=== PATIENT | female | born 1965 | race Caucasian/White ===

== ENCOUNTER 2017-01-03 10:59 | Day surgery (SDC) | payer OTHER ==
[2017-01-03] MEDS ORDERED: LIDOCAINE 1% W/EPI 1:200,000 MPF 30ML SQ ONE (13:28)
[2017-01-03] MEDS ORDERED: BUPIVACAINE 0.5% W/EPI MPF 30 ML VIAL IVP ONE (13:28)
[2017-01-03] MEDS ORDERED: DEXAMETHASONE PRESERVATIVE FREE 10MG/ML VIAL IV ONE (13:28)
[2017-01-03] MEDS ORDERED: ONDANSETRON HCL IV 4 MG/2 ML VIAL IVP ONE (15:22)
[2017-01-03] MEDS ORDERED: FENTANYL PF 100MCG/2ML VIAL IV ONE (15:22)
[2017-01-03] MEDS ORDERED: LIDOCAINE 2% MDV (20MG/ML) 20ML VIAL IV ONE (15:22)
[2017-01-03] MEDS ORDERED: PROPOFOL 10 MG/ML VIAL IV ONE (15:22)
[2017-01-03] MEDS ORDERED: MIDAZOLAM HCL 2MG/2ML VIAL IV ONE (15:22)
--- NOTE | 2017-01-03 15:54 | Operative Note - [place] ---
DATE OF SURGERY: 01/03/17 PREOPERATIVE DIAGNOSIS: CERVICAL SPONDYLOSIS WITHOUT MYELOPATHY, ICD-10 CODE = M47.812. OPERATION: RADIOFREQUENCY RHIZOTOMY LEFT CERVICAL FACETS 3/4, 4/5, 5/6, AND 6/7. SURGEON: FLORI SHEARER D.O. ANESTHESIA: LOCAL SEDATION. ANESTHESIA PROVIDER: BRANDON MENDES CRNA. INDICATION: This patient presents with primary neck pain. Examination shows tenderness in the cervical spine. Range of motion causing pain to the neck with extension. Diagnostics show multiple extensive spondylosis. A facet series 75-90 % pain control. Due to the failure of therapy, she presents today and with success of the facet, presents today for rhizotomy. Due to the revised insurance guidelines limiting the number of levels and bilateral technique, she is here for the left and will return, if necessary, for the right. PROCEDURE: Intravenous line, vital sign monitoring, IV sedation, prepped, draped, sterile technique. Under imaging, facets 3/4, 4/5, 5/6, and 6/7 left marked and infiltrated. A 22-gauge rhizotomy cannula positioned. Stimulation trials conducted. Rhizotomy burn performed. Local with anti-inflammatory into the sites. Topical antibiotics. Sterile dressing applied. We will monitor and evaluate. FLORI SHEARER D.O. Date & Time cc: Evita Thomas D.O. JOB NUMBER: [id number] MTDD
== END 2017-01-03 12:20 | disposition home or self-care (01) ==
LOC: SUR 10:59
PROVIDERS: ATTEND Pain Medicine Interventional Pain Medicine
DX: M47.812 Spondylosis without myelopathy or radiculopathy, cervical region (principal); E03.9 Hypothyroidism, unspecified; I10 Essential (primary) hypertension
CPT/HCPCS: 64633; 64634 ×3; 01936; J2405; J1100; J3010